=== PATIENT | female | born 1945 | race Caucasian/White ===

== ENCOUNTER 2018-01-20 11:52 | Emergency (ER) | payer MEDICARE ==
[2018-01-20] MEDS ORDERED: Fentanyl 100 MCG/2 ML VIAL ONE (12:29)
[2018-01-20] MEDS ORDERED: ISOVUE-370 76%-LOCM 1 ML ONE (12:33)
[2018-01-20] MEDS ORDERED: Ondansetron HCl/PF 4 MG/2 ML Vial ONE (12:45)
--- NOTE | 2018-01-20 13:01 | RAD ---
PORTABLE CHEST: History: Chest pain. Comparison: 06-06-16 FINDINGS: Heart is mildly prominent with post op sternotomy changes. Lung iverson are clear. No infiltrate or va scular congestion. No evidence of effusion. IMPRESSION: No acute lung process. POS: [facility]
[2018-01-20] MEDS ORDERED: Promethazine HCl 25 MG/ML VIAL ONE (13:12)
[2018-01-20 14:28] LABS: #Eosinphils 0.1 thou/uL (0.0-0.7); #Monocytes 0.8 thou/uL (0.11-0.59); #Neutrophils 8.3 thou/uL (1.40-6.50); %Basophils 0.4 % (0.0-1.0); %Eosinophils 0.9 % (0.0-10.0); %Lymphocytes 17.4 % (21.0-51.0); %Monocytes 7.3 % (0.0-10.0); %Neutrophils 73.9 % (42.0-75.0); Mean Corpuscular HGB CONC 31.9 g/dL (32.0-36.0); Mean Corpuscular Hemoglobin 28.8 pg (27.0-31.0); Mean Corpuscular Volume 90.3 fL (78.0-98.0); Mean Platelet Volume 9.7 fL (7.4-10.4); Platelet Count 174 thou/uL (130-400); RBC Distribution Width 12.9 % (11.5-14.5); White Blood Cell (WBC) Count 11.3 thou/uL (4.8-10.8)
--- NOTE | 2018-01-20 14:33 | ULT ---
VENOUS DUPLEX SONOGRAM BILATERAL LOWER EXTREMITIES: HISTORY: Bilateral leg pain and edema. FINDINGS: Each common femoral vein and greater saphenous junction are evaluated along with each femoral, deep f emoral, popliteal, and posterior tibial vein. There is good color and spectral Doppler flow, anh kaitlyn, and augmentation. IMPRESSION: No sonographic evidence of deep vein thrombosis within either lower extremity. POS: [facility]
[2018-01-20 14:51] LABS: ALT (SGPT) 22 U/L (8-55); AST (SGOT) 23 U/L (5-34); Albumin 4.2 g/dL (3.4-4.8); Alkaline Phosphatase 144 U/L (40-150); Anion Gap 15 mmol/L (10-20); BUN (Urea Nitrogen) 16 mg/dL (9.8-20.1); Bilirubin, Total 0.8 mg/dL (0.2-1.2); CK (CPK) 140 U/L (29-168); Calc. Creatinine Clearance 0 mL/min (70-130); Calcium 10.1 mg/dL (7.8-10.44); Carbon Dioxide 25 mmol/L (23-31); Chloride 103 mmol/L (98-107); Estimated GFR-MDRD 70; Globulin 4.2 g/dL (2.4-3.5); Glucose 167 mg/dL (83-110); Potassium 3.9 mmol/L (3.5-5.1); Protein, Total 8.4 g/dL (6.0-8.3); Sodium 139 mmol/L (136-145)
[2018-01-20 14:55] LABS: CKMB 5.7 ng/mL (0-6.6); Troponin I Less than 0.010 ng/mL (< 0.028)
--- NOTE | 2018-01-20 15:43 | CT ---
CT ARTERIOGRAM CHEST WITH IV CONTRAST AND 3D MIP IMAGING CT ARTERIOGRAM ABDOMEN WITH IV CONTRAST AND 3D MIP IMAGING: History: Chest and abdomen pain. Radiation to back. FINDINGS: Normal branching great vessels of the aortic arch. Mild arterial calcification. Pulmonary arteries ar e well opacified centrally. Duplicated right renal artery. Visceral arteries are patent. Peripherally calcified lesion within the lateral aspect of the liver has the appearance of a benign p rocess and has evolved appropriately since the 2006 exam. Old right rib fractures. Gallbladder is ludy gically absent. Pelvis was not imaged. Degenerative changes lumbar spine. IMPRESSION: 1. No CT evidence of aortic aneurysm or dissection. No acute abnormalities are demonstrated. 2. Atherosclerosis. POS: [facility]
== END 2018-01-20 16:09 | disposition home or self-care (01) ==
LOC: ERS 11:52
DX: R07.9 Chest pain, unspecified (principal); M79.672 Pain in left foot; M79.671 Pain in right foot; K21.9 Gastro-esophageal reflux disease without esophagitis; E78.5 Hyperlipidemia, unspecified; I10 Essential (primary) hypertension; Z79.899 Other long term (current) drug therapy
CPT/HCPCS: 36415; 71045; 71275; 80053; 82553; 83880; 84484; 85025; 85379; 93005; 93970; 96365; 96375; J2405; J2550; J3010

== ENCOUNTER 2020-01-29 05:34 | Observation (INO) | payer MEDICARE ==
[2020-01-29] MEDS ORDERED: Nitroglycerin 2% Ointment 1 INCH/1 GM Packet ONE (05:56)
[2020-01-29 06:26] LABS: #Eosinphils 0.2 thou/uL (0.0-0.7); #Lymphocytes 1.7 thou/uL (1.20-3.40); #Neutrophils 8.7 thou/uL (1.40-6.50); %Basophils 0.3 % (0.0-1.0); %Eosinophils 1.3 % (0.0-10.0); %Lymphocytes 14.4 % (21.0-51.0); %Monocytes 8.2 % (0.0-10.0); %Neutrophils 75.8 % (42.0-75.0); Hemoglobin 14.7 g/dL (12.0-16.0); Mean Corpuscular HGB CONC 32.1 g/dL (32.0-36.0); Mean Corpuscular Hemoglobin 29.2 pg (27.0-31.0); Mean Corpuscular Volume 90.8 fL (78.0-98.0); Mean Platelet Volume 11.2 fL (7.4-10.4); Platelet Count 150 thou/uL (130-400); RBC Distribution Width 12.9 % (11.5-14.5); Red Blood Cell (RBC) Count 5.02 mill/uL (4.20-5.40); White Blood Cell (WBC) Count 11.5 thou/uL (4.8-10.8)
[2020-01-29 06:46] LABS: ALT (SGPT) 21 U/L (8-55); AST (SGOT) 19 U/L (5-34); Albumin 3.7 g/dL (3.4-4.8); Alkaline Phosphatase 126 U/L (40-110); Anion Gap 13 mmol/L (10-20); BUN (Urea Nitrogen) 19 mg/dL (9.8-20.1); Bilirubin, Total 0.6 mg/dL (0.2-1.2); CK (CPK) 73 U/L (29-168); Calc. Creatinine Clearance 0 mL/min (70-130); Calcium 9.6 mg/dL (7.8-10.44); Carbon Dioxide 27 mmol/L (23-31); Chloride 100 mmol/L (98-107); Estimated GFR-MDRD 61; Globulin 3.9 g/dL (2.4-3.5); Glucose 349 mg/dL (83-110); Lipase 14 U/L (8-78); Potassium 3.8 mmol/L (3.5-5.1); Protein, Total 7.6 g/dL (6.0-8.3); Sodium 136 mmol/L (136-145)
--- NOTE | 2020-01-29 08:39 | RAD ---
CHEST 1 VIEW: INDICATION: History of chest pain and shortness of breath. COMPARISON: Prior exam dated 06/16/2019. FINDINGS: Post-CABG change is similar-appearing. Lungs are clear. No pleural effusion or pneumothorax is evid ent. There is stable postsurgical change of bilateral rotator cuff repairs. IMPRESSION: No acute cardiopulmonary abnormality. POS: [facility]
[2020-01-29 09:37] LABS: Troponin I 0.021 ng/mL (< 0.028)
[2020-01-29 10:54] VITALS: BMI 39.7
[2020-01-29] MEDS ORDERED: Dextrose 50% Abboject 50 ML SYRINGE SLOW IVP PRN (11:44)
[2020-01-29] MEDS ORDERED: Dextrose 5% in Water 1,000 ML IV PRN (11:44)
[2020-01-29 13:07] LABS: SARS-CoV-2 NAA Rapid Test Not Detected (NotDetected)
[2020-01-29 13:34] LABS: Hemoglobin A1c 10.5 % (4.0-6.0)
[2020-01-29 13:53] LABS: Troponin I 0.011 ng/mL (< 0.028)
[2020-01-29] MEDS ORDERED: Communication Order-Pharmacy FS SCH (14:00)
[2020-01-29] MEDS ORDERED: Enoxaparin Sodium 100 MG/ML SYRINGE SC SCH (14:15)
--- NOTE | 2020-01-29 15:37 | PDOC.HHP ---
Hospitalist HPI - History of Present Illness chest pain History of Present Illness: This is a 74 year old female with past medical history of CABG, CAD, possible diabetes who presented to the ER with chest pain. The patient states that she started having chest pain at 8:00 pm last night. It was sharp, radiating to her shoulder, neck and was between her shoulder blades. She states she felt very hot during this episode, but had no palpitations, lightheadedness or dizziness. She took a nitroglycerin which helped her pain, but her chest pain did not completely go away so she called a nurse at her doctor's office who stated that she can take additional nitroglycerin if needed. She took two additional nitroglycerin which relieved her chest pain and then she came to the ER. She did not ambulate so is not sure whether she had chest pain on exertion. She denies association with food intake. She had no fevers or chills, no abdominal pain, nausea, vomiting or diarrhea. SHe reports occasional dry cough, occasional sneezing for months, she states "possibly due to the air." ED Course: The patient presented to the ER with a BP of 182/68. She was given metoprolol IV and nitroglycerin with improvement in her BP. Chest X ray was normal. First two troponins were normal. The patient was admitted for further workup. The patient states her blood sugar was >300, and was not aware if she has diabetes or not. Hospitalist ROS - Review of Systems Constitutional: denies: fever, chills Eyes: denies: pain, vision change Respiratory: reports: cough (occasional). denies: dry, shortness of breath, pleuritic pain Cardiovascular: denies: chest pain, palpitations, orthopnea, paroxysmal noc. dyspnea Gastrointestinal: denies: nausea, vomiting, abdominal pain, hematochezia Genitourinary: denies: dysuria, frequency Musculoskeletal: reports: shoulder pain (bilateral shoulder pain radiating to arms). denies: neck pain Skin: denies: rash Neurological: denies: weakness, numbness - Medication Medications: Active Medications Generic Name Dose Route Start Last Admin Trade Name Freq PRN Reason Stop Dose Admin Enoxaparin Sodium 100 mg 01/29/20 14:15 01/29/20 14:52 Lovenox SC 01/29/20 16:15 100 mg NOW [facility] Hospitalist History - Past Surgical History Other Surgical History: Rotator cuff repair Ruptured disc Varicose vein surgery CABG 1998 - Family History Other Family History: Brother has heart disease Father had heart disease - Social History Smoking Status: Never smoker Alcohol: reports: None - Exam General Appearance: NAD, awake alert Eye: PERRL, anicteric sclera ENT: normocephalic atraumatic, no oropharyngeal lesions Neck: no JVD Heart: RRR, no murmur, no gallops, no rubs Respiratory: CTAB, no wheezes, no rales, no ronchi Gastrointestinal: soft, non-tender, non-distended, normal bowel sounds Extremities: no cyanosis, no clubbing, no edema Skin: normal turgor, no lesions, no rashes Neurological: cranial nerve grossly intact, normal sensation to touch, no focal deficits, no new deficit Musculoskeletal: normal tone, normal strength, no muscle wasting Hospitalist Results - Labs Result Diagrams: 01/29/20 06:03 01/29/20 06:03 Lab results: WBC 11.5 thou/uL (4.8-10.8) H 01/29/20 06:03 Hgb 14.7 g/dL (12.0-16.0) 01/29/20 06:03 Hct 45.6 % (36.0-47.0) 01/29/20 06:03 MCV 90.8 fL (78.0-98.0) 01/29/20 06:03 Plt Count 150 thou/uL (130-400) 01/29/20 06:03 Neutrophils % 75.8 % (42.0-75.0) H 01/29/20 06:03 Sodium 136 mmol/L (136-145) 01/29/20 06:03 Potassium 3.8 mmol/L (3.5-5.1) 01/29/20 06:03 Chloride 100 mmol/L (98-107) 01/29/20 06:03 Carbon Dioxide 27 mmol/L (23-31) 01/29/20 06:03 BUN 19 mg/dL (9.8-20.1) 01/29/20 06:03 Creatinine 0.91 mg/dL (0.6-1.1) 01/29/20 06:03 Glucose 349 mg/dL (83-110) H 01/29/20 06:03 Calcium 9.6 mg/dL (7.8-10.44) 01/29/20 06:03 Total Bilirubin 0.6 mg/dL (0.2-1.2) 01/29/20 06:03 AST 19 U/L (5-34) 01/29/20 06:03 ALT 21 U/L (8-55) 01/29/20 06:03 Alkaline Phosphatase 126 U/L (40-110) H 01/29/20 06:03 Creatine Kinase 73 U/L (29-168) 01/29/20 06:03 Troponin I 0.011 ng/mL (< 0.028) 01/29/20 13:05 Serum Total Protein 7.6 g/dL (6.0-8.3) 01/29/20 06:03 Albumin 3.7 g/dL (3.4-4.8) 01/29/20 06:03 Lipase 14 U/L (8-78) 01/29/20 06:03 - EKG Interpretation EKG: First degree AV block Hospitalist H&P A/P - Plan Plan: Chest Xray: no acute abnormality This is a 74 year old female with past medical history of CAD s/p CABG, hypertension who presents with chest pain alleviated with nitro Chest pain - reports pain alleviated with nitro .Takes aspirin but not statin - troponins have been negative - will continue aspirin and start statin. Cardiology was consulted, plan for cath on Friday given patient's possible noncompliance - treated with therapeutic lovenox this am Hyperglycemia - blood sugar 300 on BMP - check hemoglobin A1C Leukocytosis - WBC 11.5, check UA - chest X ray normall Hypertension - started on coreg and continued on home spironolactone DVT prophylaxis: lovenox Code status: full code
[2020-01-29] MEDS: Carvedilol 6.25 MG TAB PO SCH (17:56)
[2020-01-29] MEDS: HumaLOG 300 UNITS/3 ML VIAL SC PRN ×2 (17:57→21:18)
[2020-01-29] MEDS: Atorvastatin Calcium 40 MG TAB PO SCH (21:04)
[2020-01-29 21:48] LABS: Bacteria/HPF 3+ HPF (None Seen); RBC/HPF 0-3 HPF (0-3); Renal Epithelial 0-3 HPF (None Seen)
[2020-01-29 21:54] LABS: Yeast-Budding 1+ HPF (None Seen)
[2020-01-30] MEDS: HumaLOG 300 UNITS/3 ML VIAL SC PRN ×3 (06:31→17:49)
--- NOTE | 2020-01-30 07:33 | CON ---
DATE OF CONSULTATION: 01/29/2020 REASON FOR CONSULTATION: Chest pain, requiring nitroglycerin. HISTORY OF PRESENT ILLNESS: Ms. Kiley Holly is a 74-year-old woman, who had a history of bypass surgery in 1998. She had internal mammary to the LAD and a radial to the diagonal. The patient did well, but has some recurrent chest pain and underwent cardiac catheterization in 2013 in July. She was found to have a patent internal mammary to the LAD, a left dominant circumflex with no stenosis. There was no graft to the diagonal. The right coronary is nondominant, also free of any disease. She has been treated medically since then. The patient recently has been having increasing amounts of chest pain and came in at this time with nitroglycerin being required x3, came to the hospital. PAST HISTORY: 1. Hypercholesterolemia, but she stopped taking the lipid-lowering therapy a couple of years ago she said. She has not had any cholesterol levels drawn. We have asked her to have levels drawn, but this has not been done. She also told me in the past that she has been having more problem with her memory. 2. Positive for elevated blood sugars. She looks like she is diabetic with a blood sugar at this time of 349. 3. History of hypertension. 4. Peripheral edema. MEDICATIONS: The medication that she took at home, she took; 1. Spironolactone 25 mg a day. 2. Torsemide 20 mg a day. 3. Aspirin 325 mg a day. She previously was on amlodipine, lisinopril/hydrochlorothiazide, carvedilol, atorvastatin, but she stopped taking those at sometime, unclear when. REVIEW OF SYSTEMS: CONSTITUTIONAL: Positive for memory loss. VISION: No changes. HEARING: No changes. PULMONARY: No cough or wheezing. GASTROINTESTINAL: No nausea, vomiting, or diarrhea. SKIN: No rashes. NEUROLOGIC: No unilateral weakness or numbness. PSYCHIATRIC: No unusual depression or anxiety. PHYSICAL EXAMINATION: GENERAL: This is a pleasant 74-year-old woman, resting comfortably in no distress. VITAL SIGNS: Blood pressure is 147/68 and pulse 78, regular. LUNGS: Clear. CARDIAC: Normal S1. Normal S2. ABDOMEN: Obese, nontender. EXTREMITIES: No clubbing. No cyanosis. Only mild edema. SKIN: Warm and dry. PSYCHIATRIC: Mood and affect normal. NEUROLOGIC: Grossly normal. PERTINENT LABORATORY DATA: Her blood sugar was 349. Hemoglobin A1c 10.5. Troponin 0.021. IMAGING DATA: EKG showed what looked like old septal infarct. ASSESSMENT: 1. Looks to have unstable angina. 2. Uncontrolled diabetes. 3. Noncompliance with statins. 4. Hypertension, not taking the medicines for that. 5. Peripheral edema. PLAN: I would recommend proceeding to repeat cardiac catheterization. The last catheterization was over 6 years ago. Discussed risk of stroke, heart attack, iodine allergy, loss of blood supply to leg or kidney, stent thrombosis, stent restenosis. She understands and wished to proceed. This will be done on Friday. Job ID: [id number]
[2020-01-30 07:58] LABS: Hemoglobin 14.9 g/dL (12.0-16.0); Mean Corpuscular HGB CONC 31.2 g/dL (32.0-36.0); Mean Corpuscular Hemoglobin 28.3 pg (27.0-31.0); Mean Corpuscular Volume 90.8 fL (78.0-98.0); Mean Platelet Volume 11.3 fL (7.4-10.4); Platelet Count 174 thou/uL (130-400); RBC Distribution Width 12.8 % (11.5-14.5); Red Blood Cell (RBC) Count 5.25 mill/uL (4.20-5.40); White Blood Cell (WBC) Count 11.4 thou/uL (4.8-10.8)
[2020-01-30 08:11] LABS: Chloride 101 mmol/L (98-107); Potassium 4.1 mmol/L (3.5-5.1); Sodium 137 mmol/L (136-145)
[2020-01-30 08:12] LABS: Calcium 9.8 mg/dL (7.8-10.44); Glucose 215 mg/dL (83-110); Triglycerides 135 mg/dL (Less than 150)
[2020-01-30 08:14] LABS: Anion Gap 11 mmol/L (10-20); Carbon Dioxide 29 mmol/L (23-31)
[2020-01-30 08:16] LABS: BUN (Urea Nitrogen) 21 mg/dL (9.8-20.1); Calc. Creatinine Clearance 103 mL/min (70-130); Estimated GFR-MDRD 67
[2020-01-30 08:17] LABS: Cholesterol 190 mg/dl (< 200 Desired)
[2020-01-30 08:18] LABS: Cardiac Risk 5.3 (Less than 4.5); HDL Cholesterol 36 mg/dL (>60 Neg Risk); LDL Cholesterol, Calculated 127 mg/dL
[2020-01-30] MEDS: Aspirin 81 mg Enteric Coated Tablet PO SCH (08:34)
[2020-01-30] MEDS: Carvedilol 6.25 MG TAB PO SCH (08:34)
[2020-01-30] MEDS: Spironolactone 25 MG TAB PO SCH (08:34)
--- NOTE | 2020-01-30 09:05 | PDOC.CPN ---
- Subjective Date: 01/30/20 Time: 08:40 Interval history: Patient seen and examined. She describes "heavy sensation" across her chest, states "comes and goes". She denies any recurrence of discomfort that brought her to the ER. Describes LOMBARDI, but also "haven't done anything to exert myself" . Reviewed home medications. Telemetry reviewed, brief, intermittent episodes 2nd AVB Kim I this am. - Review of Systems General: denies: fever/chills, weight/appetite/sleep changes, night sweats, fatigue Respiratory: reports: cough (describes as dry), shortness of breath, exercise intolerance. denies: congestion Cardiovascular: reports: chest pain, edema. denies: palpitation, paroxysmal nocturnal dyspnea, orthopnea Gastrointestinal: denies: nausea, vomiting, diarrhea, constipation, abd pain, GI bleeding - Objective Allergies/Adverse Reactions: Allergies Allergy/AdvReac Type Severity Reaction Status Date / Time codeine Allergy Verified 01/29/20 10:55 hydrocodone Allergy Verified 01/29/20 10:55 Visit Medications: Current Medications Aspirin (Ecotrin) 81 mg PO DAILY [facility] Last Admin: 01/30/20 08:34 Dose: 81 mg Atorvastatin Calcium (Lipitor) 40 mg PO HS [facility] Last Admin: 01/29/20 21:04 Dose: 40 mg Carvedilol (Coreg) 6.25 mg PO BID-[facility] Last Admin: 01/30/20 08:34 Dose: 6.25 mg Dextrose/Water (Dextrose 50%) 25 gm SLOW IVP PRN PRN PRN Reason: Hypoglycemia Diazepam (Valium) 5 mg PO [facility] Stop: 01/31/20 23:59 Glucagon (Glucagon) 1 mg IM PRN PRN PRN Reason: Hypoglycemia Dextrose/Water (D5w) 1,000 mls @ 0 mls/hr IV .Q0M PRN PRN Reason: Hypoglycemia Sodium Chloride (Normal Saline 0.9%) 1,000 mls @ 100 mls/hr IV .Q10H [facility] Insulin Human Lispro (Humalog) 0 units SC .MILD SLIDING SCALE PRN PRN Reason: Mild Correctional Scale Last Admin: 01/30/20 06:31 Dose: 3 unit Miscellaneous Information (Communication Order-Pharmacy) 0 each FS [facility] Stop: 01/30/20 23:59 Spironolactone (Aldactone) 25 mg PO QAM-[facility] Last Admin: 01/30/20 08:34 Dose: 25 mg Vital Signs & Weight: Vital Signs Temp Pulse Resp BP BP BP Pulse Ox 01/30/20 08:34 131/92 H 01/30/20 07:21 97.7 F 88 14 131/97 H 95 01/30/20 03:55 98.2 F 82 17 119/53 L 94 L 01/29/20 21:10 98.0 F 75 20 140/63 96 Weight 239 lb 1.6 oz - Quality Measures Condition: Coronary Artery Disease CV meds: Beta Evangelista: Yes, ISAIAH/ARB: No, Statin: Yes, ASA: Yes, Plavix/Effient/ Brilinta: No, Anticoagulant: No - Medication Contraindications No Antithrombotic reason: Treatment not indicated No Anticoagulant reason: Treatment not indicated - Physical Exam General: alert & oriented x3, appears well, no apparent distress HEENT: mucus membranes moist Neck: supple neck, no JVD/HJR Cardiac: regular rate and rhythm, S1/S2 Lungs: clear to auscultation, normal breath sounds, no wheeze, rales, rhonchi Neuro: grossly intact Abdomen: active bowel sounds, other (obese) Extremities: no cyanosis, no clubbing, 1+ LE edema (left > right) Skin: clear - Labs Result Diagrams: 01/30/20 07:49 01/30/20 07:49 Troponin/CKMB Troponin I 0.011 ng/mL (< 0.028) 01/29/20 13:05 - Telemetry Sinus rhythms and dysrhythmias: sinus rhythm (Brief 2nd degree AVB Mobitz I, HR 49-60) - Assessment/Plan Assessment/Plan: Assessment: 1. CAD 2. HTN 3. DM Type II-uncontrolled 4. Pure hypercholesterolemia 5. Obesity 6. Brief 2nd degree ABG Type I-asymptomatic, HR 49 Plan: Plan for [facility] tomorrow, all questions asked were answered. Decrease carvedilol, add ACEi for BP control. Reinforced importance of medication compliance. Reviewed POC with Dr. To.
[2020-01-30] MEDS ORDERED: Lisinopril 5 MG TAB PO SCH (10:15)
[2020-01-30] MEDS: Carvedilol 3.125 MG TAB PO SCH (16:14)
[2020-01-30] MEDS: Atorvastatin Calcium 40 MG TAB PO SCH (20:45)
[2020-01-31] MEDS: Aspirin 81 mg Enteric Coated Tablet PO SCH (04:13)
[2020-01-31] MEDS: Spironolactone 25 MG TAB PO SCH (05:44)
[2020-01-31] MEDS: Carvedilol 3.125 MG TAB PO SCH (05:48)
[2020-01-31] MEDS ORDERED: Diazepam 5 MG TAB PO SCH (06:00)
[2020-01-31] MEDS ORDERED: Sodium Chloride 0.9% 1,000 ML IV SCH (06:00)
[2020-01-31] MEDS ORDERED: Lisinopril 5 MG TAB PO SCH (09:00)
[2020-01-31] MEDS ORDERED: Sodium Chloride 0.9% 200 ML IV PRN (09:44)
[2020-01-31] MEDS ORDERED: Nitroglycerin 0.4 MG TAB (25 Tab Bottle) SL PRN (09:44)
[2020-01-31] MEDS: HumaLOG 300 UNITS/3 ML VIAL SC PRN (11:37)
[2020-01-31] MEDS ORDERED: Iopamidol 370 76% 100 ML VIAL ONE (11:45)
[2020-01-31 13:02] VITALS: BP 151/68; TEMP 98.8
--- NOTE | 2020-01-31 17:49 | PDOC.HOSPP ---
- Subjective Encounter Date: 01/30/20 Encounter Time: 11:15 Subjective: pt up in bed no complains - Objective Vital Signs & Weight: Vital Signs (12 hours) Temp Pulse Resp BP BP BP Pulse Ox 01/31/20 12:00 98.8 F 57 L 14 151/68 H 96 01/31/20 09:50 97.6 F 64 14 135/60 135/60 95 01/31/20 07:15 98 F 72 14 119/56 L 95 Weight Weight 241 lb 1.6 oz I&O: 01/30/20 01/31/20 02/01/20 06:59 06:59 06:59 Intake Total 898 1180 240 Output Total 600 Balance 898 580 240 Result Diagrams: 01/30/20 07:49 01/30/20 07:49 Additional Labs: Accuchecks 01/31/20 01/31/20 01/30/20 11:11 05:44 20:41 POC Glucose 191 H 226 H 223 H Hospitalist ROS - Review of Systems Cardiovascular: denies: chest pain, palpitations, orthopnea, paroxysmal noc. dyspnea, edema, light headedness, other Gastrointestinal: denies: nausea, vomiting, abdominal pain, diarrhea, constipation, melena, hematochezia, other Genitourinary: denies: dysuria, frequency, incontinence, hematuria, retention, other - Exam Heart: negative: RRR, no murmur, no gallops, no rubs, normal peripheral pulses, irregular, diminshed peripheral pulses, murmur present, II/IV, III/IV Respiratory: negative: CTAB, no wheezes, no rales, no ronchi, normal chest expansion, no tachypnea, normal percussion, rales, rhonchi, tachypneic, wheezes Gastrointestinal: negative: soft, non-tender, non-distended, normal bowel sounds , no palpable masses, no hepatomegaly, no splenomegaly, no bruit, no guarding, no rigidity, tender to palpation, distended, diminished bowl sounds, voluntary guarding Hosp A/P (1) Chest pain Code(s): R07.9 - CHEST PAIN, UNSPECIFIED Status: Acute (2) CAD (coronary artery disease) Code(s): I25.10 - ATHSCL HEART DISEASE OF [place] CORONARY ARTERY W/O ANG PCTRS Status: Acute (3) Diabetes Code(s): E11.9 - TYPE 2 DIABETES MELLITUS WITHOUT COMPLICATIONS Status: Acute - Plan will continue current meds. will check hbgalc. pt will need meds for diabetes. cath in am. she is on dvt ppx.
--- NOTE | 2020-01-31 20:23 | DIS ---
DATE OF ADMISSION: 01/29/2020 DATE OF DISCHARGE: 01/31/2020 DISCHARGE DIAGNOSES: As of the followin. Chest pain. 2. Coronary artery disease. 3. Hyperglycemia. 4. New diagnosis of diabetes. 5. Mild leukocytosis. HOSPITAL COURSE: The patient is a very pleasant 74-year-old female who initially presented to the hospital with complaints of chest pain. The patient was seen by Cardiology, underwent a cardiac catheterization that indicated medical management. The cath indicated EF of 60%, LAD 100% with patent MARIE graft with good flow. Circumflex, no obstruction, no obstructive CAD. RCA, nondominant, nonobstructive CAD. Ascending aorta was calcified. Medical treatment was recommended. The patient also was found to have newly diagnosed diabetes. Hemoglobin A1c was 10. She was started on medications, two; one was metformin which she was asked to start on the and also glipizide. HOME MEDICATIONS: The patient's home medications will be: 1. Spironolactone 25 mg daily. 2. Aspirin 81 mg daily. 3. Metformin 500 mg twice a day. 4. Glipizide 2.5 twice a day. 5. Lisinopril 5 mg daily. 6. Atorvastatin 40 mg at bedtime. PHYSICAL EXAMINATION: VITAL SIGNS: Temperature 97.6, pulse 64, blood pressure 135/60, respirations 14, and O2 saturation is 95% on room air. GENERAL: She is awake, alert, and oriented x3. Does not appear in distress. CV: S1, S2 present. No murmurs, rubs, or gallops. ABDOMEN: Soft and nontender. Bowel sounds are present x2. EXTREMITIES: Her right calf area appears stable. Also, she has good pedal pulses. The patient was then discharged to home. She will follow up with her primary. I have provided her with Cardiology's number and also new primary since she has been looking for one. Job ID: [id number]
== END 2020-01-31 15:30 | disposition home or self-care (01) ==
LOC: ERS 05:34 → 2NO 09:55
PROVIDERS: ADMIT Internal Medicine; ATTEND Internal Medicine
PROC: 4A023N7 Measurement of Cardiac Sampling and Pressure, Left Heart, Percutaneous Approach (ICD-10-PCS; principal; 2020-01-31)
PROC: B2111ZZ Fluoroscopy of Multiple Coronary Arteries using Low Osmolar Contrast (ICD-10-PCS; 2020-01-31)
PROC: B2181ZZ Fluoroscopy of Left Internal Mammary Bypass Graft using Low Osmolar Contrast (ICD-10-PCS; 2020-01-31)
PROC: B2121ZZ Fluoroscopy of Single Coronary Artery Bypass Graft using Low Osmolar Contrast (ICD-10-PCS; 2020-01-31)
DX: R07.9 Chest pain, unspecified (principal); I25.10 Atherosclerotic heart disease of native coronary artery without angina pectoris; I25.82 Chronic total occlusion of coronary artery; I70.0 Atherosclerosis of aorta; E11.65 Type 2 diabetes mellitus with hyperglycemia; D72.829 Elevated white blood cell count, unspecified; E78.00 Pure hypercholesterolemia, unspecified; I10 Essential (primary) hypertension; K21.9 Gastro-esophageal reflux disease without esophagitis; E78.5 Hyperlipidemia, unspecified; R60.0 Localized edema; I44.1 Atrioventricular block, second degree; E66.9 Obesity, unspecified; Z68.41 Body mass index [BMI] 40.0-44.9, adult; Z79.82 Long term (current) use of aspirin; Z79.899 Other long term (current) drug therapy; Z95.1 Presence of aortocoronary bypass graft; Z91.14 Patient's other noncompliance with medication regimen; Z20.828 Contact with and (suspected) exposure to other viral communicable diseases
CPT/HCPCS: 36600; 71045; 80048; 80053; 80061; 81015; 82550; 82962 ×3; 83036 ×2; 83690; 84484 ×2; 85025; 85027; 93005; 93455; 99285; U0002; 36415; 36416; 96372; G0378; J1644; J1650; Q9967

== ENCOUNTER 2021-12-25 21:32 | Inpatient (IN) | payer MEDICARE ==
[~2021-12-25 21:32] MED LIST: ISOVUE-370 76%-LOCM 1 ML ONE
[2021-12-25 22:57] LABS: #Basophils 0.1 thou/uL (0.0-0.2); #Eosinphils 0.2 thou/uL (0.0-0.7); #Lymphocytes 1.9 thou/uL (1.20-3.40); %Basophils 0.8 % (0.0-1.0); %Eosinophils 1.5 % (0.0-10.0); %Lymphocytes 19.2 % (21.0-51.0); %Monocytes 9.7 % (0.0-10.0); %Neutrophils 68.8 % (42.0-75.0); Hemoglobin 14.2 g/dL (12.0-16.0); Mean Corpuscular HGB CONC 31.7 g/dL (32.0-36.0); Mean Corpuscular Hemoglobin 28.9 pg (27.0-31.0); Mean Corpuscular Volume 90.9 fL (78.0-98.0); Mean Platelet Volume 10.8 fL (7.4-10.4); Platelet Count 146 thou/uL (130-400); RBC Distribution Width 14.4 % (11.5-14.5); Red Blood Cell (RBC) Count 4.93 mill/uL (4.20-5.40); White Blood Cell (WBC) Count 10.1 thou/uL (4.8-10.8)
[2021-12-25 23:08] LABS: INR-International Normal Ratio 1.1; PTT 32.5 sec (22.9-36.1); Prothrombin Time 14.5 sec (12.0-14.7)
[2021-12-25 23:18] LABS: ALT (SGPT) 18 U/L (8-55); AST (SGOT) 20 U/L (5-34); Albumin 3.6 g/dL (3.4-4.8); Alkaline Phosphatase 138 U/L (40-110); Anion Gap 15 mmol/L (10-20); BUN (Urea Nitrogen) 22 mg/dL (9.8-20.1); Bilirubin, Total 0.7 mg/dL (0.2-1.2); Calc. Creatinine Clearance 0 mL/min (70-130); Carbon Dioxide 25 mmol/L (23-31); Chloride 106 mmol/L (98-107); Globulin 3.1 g/dL (2.4-3.5); Glucose 156 mg/dL (83-110); Potassium 4.3 mmol/L (3.5-5.1); Protein, Total 6.7 g/dL (5.8-8.1); Sodium 142 mmol/L (136-145)
[2021-12-25] MEDS ORDERED: Ketorolac Tromethamine 30 MG/ML VIAL ONE (23:27)
[2021-12-25] MEDS ORDERED: Acetaminophen 500 MG TAB ONE ×2 (23:29→23:30)
[2021-12-26 01:50] LABS: Magnesium 1.8 mg/dL (1.6-2.6)
[2021-12-26] MEDS ORDERED: Fentanyl 100 MCG/2 ML VIAL ONE (03:07)
[2021-12-26] MEDS ORDERED: Ondansetron PF 4 MG/2 ML Vial ONE (03:31)
[2021-12-26] MEDS ORDERED: Acetaminophen 325 MG TAB PO PRN (05:15)
[2021-12-26] MEDS ORDERED: Ondansetron PF 4 MG/2 ML Vial IVP PRN (05:15)
[2021-12-26] MEDS ORDERED: Ondansetron ODT 4 MG TAB SL PRN (05:15)
[2021-12-26 05:45] VITALS: BMI 38.6
[2021-12-26] MEDS ORDERED: Bisacodyl 5 MG TAB PO PRN (07:23)
[2021-12-26] MEDS ORDERED: Bisacodyl 10 MG SUPP PR PRN (07:23)
[2021-12-26] MEDS ORDERED: Senokot S 8.6-50 MG TAB PO PRN (07:23)
[2021-12-26] MEDS ORDERED: Magnesium 2 GM/50 ML(in water) 2 GM in Premix Bag 1 BAG IVPB SCH (07:30)
[2021-12-26] MEDS ORDERED: Dextrose 5% in Water 1,000 ML IV PRN (07:41)
[2021-12-26] MEDS ORDERED: HumaLOG 300 UNITS/3 ML VIAL SC PRN (07:41)
[2021-12-26] MEDS ORDERED: Dextrose 50% Abboject 50 ML SYRINGE SLOW IVP PRN (07:41)
[2021-12-26 07:51] LABS: #Eosinphils 0.1 thou/uL (0.0-0.7); #Lymphocytes 1.2 thou/uL (1.20-3.40); #Monocytes 0.5 thou/uL (0.11-0.59); #Neutrophils 6.7 thou/uL (1.40-6.50); %Basophils 0.5 % (0.0-1.0); %Eosinophils 0.7 % (0.0-10.0); %Lymphocytes 14.6 % (21.0-51.0); %Monocytes 6.1 % (0.0-10.0); %Neutrophils 78.2 % (42.0-75.0); Hemoglobin 13.9 g/dL (12.0-16.0); Mean Corpuscular HGB CONC 31.7 g/dL (32.0-36.0); Mean Corpuscular Hemoglobin 29.1 pg (27.0-31.0); Mean Corpuscular Volume 91.7 fL (78.0-98.0); Mean Platelet Volume 10.8 fL (7.4-10.4); Platelet Count 148 thou/uL (130-400); RBC Distribution Width 14.5 % (11.5-14.5); White Blood Cell (WBC) Count 8.5 thou/uL (4.8-10.8)
[2021-12-26 08:02] LABS: Hemoglobin A1c 7.5 % (4.0-6.0)
[2021-12-26 08:15] LABS: ALT (SGPT) 16 U/L (8-55); AST (SGOT) 19 U/L (5-34); Albumin 3.5 g/dL (3.4-4.8); Alkaline Phosphatase 130 U/L (40-110); Anion Gap 13 mmol/L (10-20); BUN (Urea Nitrogen) 22 mg/dL (9.8-20.1); Bilirubin, Total 0.7 mg/dL (0.2-1.2); Calc. Creatinine Clearance 102 mL/min (70-130); Calcium 9.1 mg/dL (7.8-10.44); Carbon Dioxide 27 mmol/L (23-31); Cardiac Risk 4.3 (Less than 4.5); Chloride 105 mmol/L (98-107); Cholesterol 153 mg/dl (< 200 Desired); Globulin 3.4 g/dL (2.4-3.5); Glucose 201 mg/dL (83-110); HDL Cholesterol 36 mg/dL (>60 Neg Risk); LDL Cholesterol, Calculated 104 mg/dL; Potassium 4.4 mmol/L (3.5-5.1); Protein, Total 6.9 g/dL (5.8-8.1); Sodium 141 mmol/L (136-145); Triglycerides 65 mg/dL (Less than 150)
[2021-12-26 08:20] LABS: Troponin I 0.016 ng/mL (< 0.028)
[2021-12-26] MEDS ORDERED: Lidocaine 5% Patch TD SCH (09:00)
[2021-12-26] MEDS ORDERED: Furosemide 20 MG/2 ML VIAL SLOW IVP SCH (10:15)
[2021-12-26] MEDS: hydrALAZINE 20 MG/ML VIAL SLOW IVP PRN (10:54)
[2021-12-26] MEDS: Lidocaine 5% Patch TD SCH (10:54)
[2021-12-26] MEDS: Transdermal Patch Removal TOP SCH (21:15)
[2021-12-26] MEDS: Atorvastatin Calcium 40 MG TAB PO SCH (21:15)
[2021-12-27] MEDS: Acetaminophen 325 MG TAB PO PRN (03:01)
[2021-12-27 04:44] LABS: #Eosinphils 0.1 thou/uL (0.0-0.7); #Lymphocytes 1.1 thou/uL (1.20-3.40); #Monocytes 0.8 thou/uL (0.11-0.59); #Neutrophils 6.8 thou/uL (1.40-6.50); %Basophils 0.5 % (0.0-1.0); %Lymphocytes 12.3 % (21.0-51.0); %Monocytes 8.5 % (0.0-10.0); %Neutrophils 77.7 % (42.0-75.0); Hemoglobin 12.9 g/dL (12.0-16.0); Mean Corpuscular Hemoglobin 28.8 pg (27.0-31.0); Mean Corpuscular Volume 92.9 fL (78.0-98.0); Platelet Count 142 thou/uL (130-400); RBC Distribution Width 14.2 % (11.5-14.5); Red Blood Cell (RBC) Count 4.48 mill/uL (4.20-5.40); White Blood Cell (WBC) Count 8.8 thou/uL (4.8-10.8)
[2021-12-27 05:04] LABS: ALT (SGPT) 14 U/L (8-55); AST (SGOT) 19 U/L (5-34); Albumin 3.2 g/dL (3.4-4.8); Alkaline Phosphatase 113 U/L (40-110); Anion Gap 11 mmol/L (10-20); BUN (Urea Nitrogen) 22 mg/dL (9.8-20.1); Bilirubin, Direct 0.3 mg/dL (0.1-0.3); Bilirubin, Total 0.7 mg/dL (0.2-1.2); Calc. Creatinine Clearance 92 mL/min (70-130); Calcium 8.9 mg/dL (7.8-10.44); Carbon Dioxide 30 mmol/L (23-31); Chloride 103 mmol/L (98-107); Glucose 175 mg/dL (83-110); Magnesium 2.1 mg/dL (1.6-2.6); Potassium 4.3 mmol/L (3.5-5.1); Protein, Total 6.4 g/dL (5.8-8.1); Sodium 140 mmol/L (136-145)
[2021-12-27] MEDS: HumaLOG 300 UNITS/3 ML VIAL SC PRN ×2 (05:53→15:03)
[2021-12-27] MEDS ORDERED: Pioglitazone HCl 15 MG TAB PO SCH (09:00)
[2021-12-27] MEDS: Spironolactone 25 MG TAB PO SCH (09:39)
[2021-12-27] MEDS: Aspirin 81 mg Enteric Coated Tablet PO SCH (09:39)
[2021-12-27] MEDS: Lidocaine 5% Patch TD SCH (09:39)
[2021-12-27] MEDS: Furosemide 40 MG TAB PO SCH (09:39)
[2021-12-27 11:29] LABS: Actual Bicarbonate (HCO3a) 28.7 mEq/L (22-28); Base Excess (BEa) 1.4 mEq/L (-2.0 to +3.0); CO2 Tension 56.1 mmHg (35.0-45.0); Calcium, Ionized (arterial) 1.25 mmol/L (1.12-1.30); Carboxyhemoglobin (COHb) 1.4 gm% (0.0-3.0); Hemoglobin (Hb) 15.3 g/dL (12.0-16.0); O2 Tension (PaO2), arterial 80.2 mmHg (> 70.0); Potassium - ABG Lab 4.07 mmol/L (3.70-5.30); pH, Arterial 7.33 (7.35-7.45)
[2021-12-27 11:30] LABS: ALV-art Gradient 49.315 mmHg (0-20); Puncture Site RRA
[2021-12-27] MEDS: Transdermal Patch Removal TOP SCH (20:26)
[2021-12-27] MEDS: Atorvastatin Calcium 40 MG TAB PO SCH (20:26)
[2021-12-28 04:35] LABS: Actual Bicarbonate (HCO3v) 29 mEq/L (22-28); Base Excess 3.9 mEq/L (-2.0 to +3.0); Calcium, Ionized (venous) 1.12 mmol/L (1.16-1.32); Chloride (VBG) 103 mmol/L (98-106); Hemoglobin (Hb) 13.7 g/dL (11.7-16.1); Potassium (VBG) 4.09 mmol/L (3.70-5.30); Sodium 138.2 mmol/L (133-146); pH (venous) 7.42 (7.32-7.43)
[2021-12-28 04:47] LABS: #Eosinphils 0.1 thou/uL (0.0-0.7); #Lymphocytes 1.4 thou/uL (1.20-3.40); #Monocytes 0.9 thou/uL (0.11-0.59); #Neutrophils 5.9 thou/uL (1.40-6.50); %Basophils 0.4 % (0.0-1.0); %Eosinophils 1.3 % (0.0-10.0); %Monocytes 10.4 % (0.0-10.0); %Neutrophils 70.8 % (42.0-75.0); Mean Corpuscular HGB CONC 31.5 g/dL (32.0-36.0); Mean Corpuscular Hemoglobin 29.3 pg (27.0-31.0); Mean Platelet Volume 11.3 fL (7.4-10.4); Platelet Count 124 thou/uL (130-400); RBC Distribution Width 14.2 % (11.5-14.5); Red Blood Cell (RBC) Count 4.44 mill/uL (4.20-5.40); White Blood Cell (WBC) Count 8.4 thou/uL (4.8-10.8)
[2021-12-28] MEDS: Acetaminophen 325 MG TAB PO PRN ×3 (04:49→20:27)
[2021-12-28 05:07] LABS: Anion Gap 13 mmol/L (10-20); BUN (Urea Nitrogen) 21 mg/dL (9.8-20.1); Calc. Creatinine Clearance 109 mL/min (70-130); Calcium 8.8 mg/dL (7.8-10.44); Carbon Dioxide 27 mmol/L (23-31); Chloride 102 mmol/L (98-107); Glucose 159 mg/dL (83-110); Magnesium 1.9 mg/dL (1.6-2.6); Potassium 4.1 mmol/L (3.5-5.1); Sodium 138 mmol/L (136-145)
[2021-12-28] MEDS: HumaLOG 300 UNITS/3 ML VIAL SC PRN ×2 (06:19→18:28)
[2021-12-28] MEDS: Aspirin 81 mg Enteric Coated Tablet PO SCH (08:43)
[2021-12-28] MEDS: Spironolactone 25 MG TAB PO SCH (08:43)
[2021-12-28] MEDS: Furosemide 40 MG TAB PO SCH (08:44)
[2021-12-28] MEDS: Lidocaine 5% Patch TD SCH (08:44)
[2021-12-28] MEDS: Empagliflozin 10 MG TAB PO SCH (08:44)
[2021-12-28] MEDS: hydrALAZINE 20 MG/ML VIAL SLOW IVP PRN (09:44)
[2021-12-28] MEDS: Ondansetron PF 4 MG/2 ML Vial IVP PRN (13:08)
[2021-12-28] MEDS: Atorvastatin Calcium 40 MG TAB PO SCH (20:27)
[2021-12-28] MEDS: Transdermal Patch Removal TOP SCH (22:04)
[2021-12-29 05:59] LABS: #Eosinphils 0.1 thou/uL (0.0-0.7); #Lymphocytes 1.7 thou/uL (1.20-3.40); #Monocytes 0.8 thou/uL (0.11-0.59); #Neutrophils 4.9 thou/uL (1.40-6.50); %Basophils 0.6 % (0.0-1.0); %Eosinophils 1.4 % (0.0-10.0); %Lymphocytes 22.7 % (21.0-51.0); %Monocytes 10.6 % (0.0-10.0); %Neutrophils 64.6 % (42.0-75.0); Hemoglobin 13.5 g/dL (12.0-16.0); Mean Corpuscular HGB CONC 30.6 g/dL (32.0-36.0); Mean Corpuscular Hemoglobin 28.9 pg (27.0-31.0); Mean Corpuscular Volume 94.6 fL (78.0-98.0); Mean Platelet Volume 11.5 fL (7.4-10.4); Platelet Count 143 thou/uL (130-400); RBC Distribution Width 14.5 % (11.5-14.5); Red Blood Cell (RBC) Count 4.69 mill/uL (4.20-5.40); White Blood Cell (WBC) Count 7.6 thou/uL (4.8-10.8)
[2021-12-29 06:26] LABS: Anion Gap 15 mmol/L (10-20); BUN (Urea Nitrogen) 24 mg/dL (9.8-20.1); Calc. Creatinine Clearance 97 mL/min (70-130); Calcium 9.4 mg/dL (7.8-10.44); Carbon Dioxide 27 mmol/L (23-31); Chloride 103 mmol/L (98-107); Glucose 150 mg/dL (83-110); Potassium 4.2 mmol/L (3.5-5.1); Sodium 141 mmol/L (136-145)
[2021-12-29] MEDS: Empagliflozin 10 MG TAB PO SCH (08:53)
[2021-12-29] MEDS: Aspirin 81 mg Enteric Coated Tablet PO SCH (08:53)
[2021-12-29] MEDS: Lidocaine 5% Patch TD SCH (08:53)
[2021-12-29] MEDS: Acetaminophen 325 MG TAB PO PRN (08:53)
[2021-12-29] MEDS: Furosemide 40 MG TAB PO SCH (08:54)
[2021-12-29] MEDS: Spironolactone 25 MG TAB PO SCH (08:54)
[2021-12-29] MEDS: HumaLOG 300 UNITS/3 ML VIAL SC PRN ×2 (11:59→17:16)
[2021-12-29] MEDS: Atorvastatin Calcium 40 MG TAB PO SCH (20:58)
[2021-12-29] MEDS: Transdermal Patch Removal TOP SCH (21:04)
[2021-12-29] MEDS: Ondansetron PF 4 MG/2 ML Vial IVP PRN (23:17)
[2021-12-30 05:35] LABS: #Eosinphils 0.1 thou/uL (0.0-0.7); #Lymphocytes 1.6 thou/uL (1.20-3.40); #Monocytes 0.7 thou/uL (0.11-0.59); #Neutrophils 4.9 thou/uL (1.40-6.50); %Basophils 0.5 % (0.0-1.0); %Eosinophils 1.6 % (0.0-10.0); %Lymphocytes 22.1 % (21.0-51.0); %Monocytes 9.8 % (0.0-10.0); %Neutrophils 66.1 % (42.0-75.0); Hemoglobin 13.4 g/dL (12.0-16.0); Mean Corpuscular HGB CONC 30.3 g/dL (32.0-36.0); Mean Corpuscular Hemoglobin 28.4 pg (27.0-31.0); Mean Corpuscular Volume 93.8 fL (78.0-98.0); Mean Platelet Volume 11.3 fL (7.4-10.4); Platelet Count 145 thou/uL (130-400); RBC Distribution Width 14.2 % (11.5-14.5); Red Blood Cell (RBC) Count 4.73 mill/uL (4.20-5.40); White Blood Cell (WBC) Count 7.3 thou/uL (4.8-10.8)
[2021-12-30 05:53] LABS: Anion Gap 14 mmol/L (10-20); BUN (Urea Nitrogen) 21 mg/dL (9.8-20.1); Calc. Creatinine Clearance 102 mL/min (70-130); Calcium 9.2 mg/dL (7.8-10.44); Carbon Dioxide 29 mmol/L (23-31); Chloride 102 mmol/L (98-107); Glucose 167 mg/dL (83-110); Potassium 4.4 mmol/L (3.5-5.1); Sodium 141 mmol/L (136-145)
[2021-12-30] MEDS: Empagliflozin 10 MG TAB PO SCH (08:22)
[2021-12-30] MEDS: Lidocaine 5% Patch TD SCH (08:22)
[2021-12-30] MEDS: Spironolactone 25 MG TAB PO SCH (08:22)
[2021-12-30] MEDS: Furosemide 40 MG TAB PO SCH (08:22)
[2021-12-30] MEDS: Ondansetron PF 4 MG/2 ML Vial IVP PRN (08:22)
[2021-12-30] MEDS: Aspirin 81 mg Enteric Coated Tablet PO SCH (08:22)
[2021-12-30] MEDS: HumaLOG 300 UNITS/3 ML VIAL SC PRN (10:55)
[2021-12-30] MEDS: Atorvastatin Calcium 40 MG TAB PO SCH (20:25)
[2021-12-30] MEDS: Transdermal Patch Removal TOP SCH (20:26)
[2021-12-30] MEDS: Acetaminophen 325 MG TAB PO PRN (23:28)
[2021-12-31] MEDS: HumaLOG 300 UNITS/3 ML VIAL SC PRN ×3 (05:07→17:59)
[2021-12-31] MEDS: Spironolactone 25 MG TAB PO SCH (07:58)
[2021-12-31] MEDS: Lidocaine 5% Patch TD SCH (07:58)
[2021-12-31] MEDS: Furosemide 40 MG TAB PO SCH (07:58)
[2021-12-31] MEDS: Empagliflozin 10 MG TAB PO SCH (07:58)
[2021-12-31] MEDS: Aspirin 81 mg Enteric Coated Tablet PO SCH (07:58)
[2021-12-31] MEDS: Acetaminophen 325 MG TAB PO PRN (20:43)
[2021-12-31] MEDS: Atorvastatin Calcium 40 MG TAB PO SCH (20:44)
[2021-12-31] MEDS: Transdermal Patch Removal TOP SCH (21:05)
[2022-01-01] MEDS: Aspirin 81 mg Enteric Coated Tablet PO SCH ×2 (08:31→09:02)
[2022-01-01] MEDS: Lidocaine 5% Patch TD SCH ×2 (08:32→09:03)
[2022-01-01] MEDS: Spironolactone 25 MG TAB PO SCH (09:04)
[2022-01-01] MEDS: Empagliflozin 10 MG TAB PO SCH (09:04)
[2022-01-01] MEDS: Furosemide 40 MG TAB PO SCH (09:04)
[2022-01-01] MEDS: Acetaminophen 325 MG TAB PO PRN (09:08)
[2022-01-01] MEDS: HumaLOG 300 UNITS/3 ML VIAL SC PRN (11:40)
[2022-01-01] MEDS: hydrALAZINE 20 MG/ML VIAL SLOW IVP PRN (18:10)
[2022-01-01] MEDS: Atorvastatin Calcium 40 MG TAB PO SCH (21:00)
[2022-01-01] MEDS: Transdermal Patch Removal TOP SCH (21:00)
[2022-01-01] MEDS ORDERED: Metoclopramide HCl 10 MG/2 ML VIAL IVP SCH (22:30)
[2022-01-02] MEDS: Lisinopril 20 MG TAB PO SCH (10:15)
[2022-01-02] MEDS: Empagliflozin 10 MG TAB PO SCH (10:15)
[2022-01-02] MEDS: Spironolactone 25 MG TAB PO SCH (10:15)
[2022-01-02] MEDS: Lidocaine 5% Patch TD SCH ×2 (10:15→10:21)
[2022-01-02] MEDS: Furosemide 40 MG TAB PO SCH (10:16)
[2022-01-02] MEDS: Aspirin 81 mg Enteric Coated Tablet PO SCH (10:18)
[2022-01-02] MEDS: Ondansetron PF 4 MG/2 ML Vial IVP PRN (18:31)
[2022-01-02] MEDS: Atorvastatin Calcium 40 MG TAB PO SCH (20:17)
[2022-01-02] MEDS: Transdermal Patch Removal TOP SCH (20:20)
[2022-01-02] MEDS: Acetaminophen 325 MG TAB PO PRN (22:26)
[2022-01-03] MEDS ORDERED: Gentamicin 80 MG/100 ML BAG ONE (06:14)
[2022-01-03] MEDS ORDERED: Lidocaine 1% (PF) 30 ML VIAL ONE ×2 (06:14→08:16)
[2022-01-03] MEDS ORDERED: CEFAZOLIN 1 GM VIAL ONE (06:14)
[2022-01-03] MEDS ORDERED: Midazolam HCl 2 mg/2 ml Vial ONE (06:32)
[2022-01-03] MEDS ORDERED: Fentanyl 100 MCG/2 ML VIAL ONE (06:32)
[2022-01-03] MEDS ORDERED: Ondansetron PF 4 MG/2 ML Vial ONE (09:51)
[2022-01-03] MEDS: Furosemide 40 MG TAB PO SCH (10:24)
[2022-01-03] MEDS: Empagliflozin 10 MG TAB PO SCH (10:24)
[2022-01-03] MEDS: Lisinopril 20 MG TAB PO SCH (10:24)
[2022-01-03] MEDS: Aspirin 81 mg Enteric Coated Tablet PO SCH (10:25)
[2022-01-03] MEDS: Lidocaine 5% Patch TD SCH (10:25)
[2022-01-03] MEDS: Spironolactone 25 MG TAB PO SCH (10:25)
[2022-01-03] MEDS ORDERED: Iopamidol 370 76% 50 ML VIAL FS ONE (11:04)
[2022-01-03 16:05] VITALS: BP 149/68; TEMP 97.5
== END 2022-01-03 18:02 | disposition home health service (06) | DRG 242 ==
LOC: ERS 21:32 → NEURO 12-26 03:29 → OBSVTOIN 12-27 15:59
PROVIDERS: ADMIT Internal Medicine; ATTEND Internal Medicine
PROC: 0JH604Z Insertion of Pacemaker, Single Chamber into Chest Subcutaneous Tissue and Fascia, Open Approach (ICD-10-PCS; principal; 2022-01-03)
PROC: 02H60JZ Insertion of Pacemaker Lead into Right Atrium, Open Approach (ICD-10-PCS; 2022-01-03)
PROC: 02HL0JZ Insertion of Pacemaker Lead into Left Ventricle, Open Approach (ICD-10-PCS; 2022-01-03)
DX: I44.1 Atrioventricular block, second degree (principal); J96.01 Acute respiratory failure with hypoxia; I50.33 Acute on chronic diastolic (congestive) heart failure; I16.1 Hypertensive emergency; R00.1 Bradycardia, unspecified; Z20.822 Contact with and (suspected) exposure to COVID-19; R29.6 Repeated falls; I25.10 Atherosclerotic heart disease of native coronary artery without angina pectoris; K21.9 Gastro-esophageal reflux disease without esophagitis; E78.5 Hyperlipidemia, unspecified; K57.30 Diverticulosis of large intestine without perforation or abscess without bleeding; G47.33 Obstructive sleep apnea (adult) (pediatric); E66.9 Obesity, unspecified; E11.65 Type 2 diabetes mellitus with hyperglycemia; I77.810 Thoracic aortic ectasia; G93.89 Other specified disorders of brain; I11.0 Hypertensive heart disease with heart failure; Z95.1 Presence of aortocoronary bypass graft; Z68.37 Body mass index [BMI] 37.0-37.9, adult; Z90.49 Acquired absence of other specified parts of digestive tract; Z90.710 Acquired absence of both cervix and uterus; Z79.82 Long term (current) use of aspirin; Z79.84 Long term (current) use of oral hypoglycemic drugs; Z79.899 Other long term (current) drug therapy; Z88.5 Allergy status to narcotic agent
CPT/HCPCS: 33208; 36415; 36416; 36600; 70450; 71045; 71260; 72125; 74177; 80048; 80053; 80061; 80076; 82607; 82746; 82805; 83036; 83735; 83880; 84443; 84484; 85025; 85610; 85730; 86850; 86900; 86901; 93005; 93010; 93306; 93600; 93610; 93880; 95816; 95819; 95957; 96374; 96375; 99152; 99153; C1730; C1785; C1898; G0378; J0360; J0690; J1580; J1815; J1885; J1940; J2001; J2250; J2405; J2765; J3010; J3475; Q9966; Q9967; U0003; U0005

== ENCOUNTER 2022-01-08 01:26 | Emergency (ER) | payer MEDICARE ==
[2022-01-08] MEDS ORDERED: Dextrose 50% Abboject 50 ML SYRINGE ONE ×2 (01:49→01:50)
[2022-01-08 02:41] LABS: #Lymphocytes 1.2 thou/uL (1.20-3.40); #Monocytes 0.9 thou/uL (0.11-0.59); #Neutrophils 12.4 thou/uL (1.40-6.50); %Basophils 0.2 % (0.0-1.0); %Eosinophils 0.3 % (0.0-10.0); %Lymphocytes 8.2 % (21.0-51.0); %Monocytes 6.2 % (0.0-10.0); %Neutrophils 85.1 % (42.0-75.0); Hemoglobin 15.4 g/dL (12.0-16.0); Mean Corpuscular HGB CONC 31.3 g/dL (32.0-36.0); Mean Corpuscular Volume 92.7 fL (78.0-98.0); Mean Platelet Volume 10.7 fL (7.4-10.4); Platelet Count 166 thou/uL (130-400); RBC Distribution Width 14.7 % (11.5-14.5); White Blood Cell (WBC) Count 14.6 thou/uL (4.8-10.8)
[2022-01-08 02:43] LABS: Bilirubin Negative (Negative); Blood, Urine Negative (Negative); Clarity Clear (Clear); Glucose, Urine (Dipstick) 500 mg/dL (Negative); Ketone, Urine Negative (Negative); Leukocyte Negative Leu/uL (Negative); Nitrite Negative (Negative); Protein, Urine (Dipstick) 70 mg/dL (Neg-Trace); Specific Gravity, Urine 1.011 (1.002-1.036); Urobilinogen Normal mg/dL (Less than 2)
[2022-01-08 03:03] LABS: ALT (SGPT) 17 U/L (8-55); AST (SGOT) 31 U/L (5-34); Albumin 3.8 g/dL (3.4-4.8); Alkaline Phosphatase 101 U/L (40-110); Anion Gap 17 mmol/L (10-20); BUN (Urea Nitrogen) 15 mg/dL (9.8-20.1); Bilirubin, Total 0.7 mg/dL (0.2-1.2); Calc. Creatinine Clearance 0 mL/min (70-130); Calcium 9.9 mg/dL (7.8-10.44); Carbon Dioxide 25 mmol/L (23-31); Chloride 104 mmol/L (98-107); Estimated GFR 90; Globulin 3.9 g/dL (2.4-3.5); Potassium 3.9 mmol/L (3.5-5.1); Protein, Total 7.7 g/dL (5.8-8.1); Sodium 142 mmol/L (136-145)
[2022-01-08 03:12] LABS: Glucose 35 mg/dL (83-110)
[2022-01-08] MEDS ORDERED: Ondansetron PF 4 MG/2 ML Vial ONE (03:42)
== END 2022-01-08 05:25 | disposition home or self-care (01) ==
LOC: ERS 01:26
DX: E16.2 Hypoglycemia, unspecified (principal); I25.10 Atherosclerotic heart disease of native coronary artery without angina pectoris; K21.9 Gastro-esophageal reflux disease without esophagitis; E78.5 Hyperlipidemia, unspecified; E78.00 Pure hypercholesterolemia, unspecified; I48.91 Unspecified atrial fibrillation; Z79.82 Long term (current) use of aspirin; Z79.84 Long term (current) use of oral hypoglycemic drugs; Z79.899 Other long term (current) drug therapy
CPT/HCPCS: 36416; 51701; 71045; 80053; 81003; 81015; 85025; 93005; 96361; 96374; 96375; J2405; J7999

== ENCOUNTER 2023-05-30 10:04 | Inpatient (IN) | payer MEDICARE ==
[2023-05-30 11:09] LABS: #Basophils 0.1 thou/uL (0.0-0.2); #Eosinphils 0.2 thou/uL (0.0-0.7); #Monocytes 1.5 thou/uL (0.11-0.59); #Neutrophils 16.9 thou/uL (1.40-6.50); %Basophils 0.2 % (0.0-1.0); %Eosinophils 1.1 % (0.0-10.0); %Monocytes 7.2 % (0.0-10.0); %Neutrophils 83.9 % (42.0-75.0); Hematocrit 33.8 % (36.0-47.0); Hemoglobin 10.7 g/dL (12.0-16.0); Mean Corpuscular HGB CONC 31.7 g/dL (32.0-36.0); Mean Corpuscular Hemoglobin 28.7 pg (27.0-31.0); Mean Corpuscular Volume 90.6 fl (78.0-98.0); Mean Platelet Volume 12.5 fL (7.4-10.4); Platelet Count 220 10x3/uL (130-400); RBC Distribution Width 15.7 % (11.5-14.5); Red Blood Cell (RBC) Count 3.73 mill/uL (4.20-5.40); White Blood Cell (WBC) Count 20.2 10x3/uL (4.8-10.8)
[2023-05-30] MEDS ORDERED: Iopamidol-370 76% 500 ML MDV (1 ML CHARGE) ONE (11:17)
[2023-05-30 11:23] LABS: INR-International Normal Ratio 1.2; PTT 32.2 sec (22.9-36.1); Prothrombin Time 15.8 sec (12.0-14.7)
[2023-05-30 11:33] LABS: ALT (SGPT) 12 U/L (8-55); AST (SGOT) 14 U/L (5-34); Albumin 3.5 g/dL (3.4-4.8); Alkaline Phosphatase 100 U/L (40-110); Anion Gap 16 mmol/L (10-20); BUN (Urea Nitrogen) 50 mg/dL (9.8-20.1); Bilirubin, Total 0.6 mg/dL (0.2-1.2); Calc. Creatinine Clearance 0 mL/min (70-130); Calcium 8.8 mg/dL (7.8-10.44); Carbon Dioxide 23 mmol/L (23-31); Chloride 104 mmol/L (98-107); Estimated GFR 21; Globulin 3.6 g/dL (2.4-3.5); Glucose 175 mg/dL (83-110); Lipase 36 U/L (8-78); Magnesium 1.4 mg/dL (1.6-2.6); Potassium 4.1 mmol/L (3.5-5.1); Protein, Total 7.1 g/dL (5.8-8.1); Sodium 139 mmol/L (136-145); Troponin I 0.021 ng/mL (< 0.028)
[2023-05-30 11:41] LABS: Bacteria/HPF 1+ HPF (None Seen); Bilirubin Negative (Negative); Blood, Urine Negative (Negative); CAUTI Indications for Culture Alt mental st,lethar; Clarity Turbid (Clear); Glucose, Urine (Dipstick) Normal (Negative); Ketone, Urine Negative (Negative); Leukocyte 75 Leu/uL (Negative); Nitrite Negative (Negative); Protein, Urine (Dipstick) 20 mg/dL (Neg-Trace); RBC/HPF None Seen HPF (0-3); Specific Gravity, Urine 1.017 (1.002-1.036); Squamous Epithelial 0-3 HPF (0-3); Urobilinogen Normal mg/dL (Less than 2); WBC/HPF 0-3 HPF (0-3)
[2023-05-30 11:42] LABS: Urine Culture Reflex No No
[2023-05-30] MEDS ORDERED: Sodium Chloride 0.9% 100 ML ONE (13:32)
[2023-05-30] MEDS ORDERED: Piperacillin/Tazobactam 3.375 GM VIAL ONE (13:32)
[2023-05-30] MEDS ORDERED: Glucagon 1 MG/ML KIT IM PRN (14:01)
[2023-05-30] MEDS ORDERED: Dextrose 5% in Water 1,000 ML IV PRN (14:01)
[2023-05-30] MEDS ORDERED: HumaLOG 300 UNITS/3 ML VIAL SC PRN (14:01)
[2023-05-30] MEDS ORDERED: Dextrose 50% Abboject 50 ML SYRINGE SLOW IVP PRN (14:01)
[2023-05-30] MEDS: Sodium Chloride 0.9% 1,000 ML IV SCH (15:18)
[2023-05-30] MEDS: Heparin 5,000 UNITS/ML VIAL SC SCH ×2 (15:18→20:19)
[2023-05-30 15:56] VITALS: BMI 36.1
[2023-05-30] MEDS: Atorvastatin Calcium 40 MG TAB PO SCH (20:19)
[2023-05-30] MEDS ORDERED: Non-Formulary Item 1 EACH (Metformin Hcl [Metformin Er Gastric] 1,000 MG Tabergr24h) PO SCH (21:00)
[2023-05-31] MEDS: Sodium Chloride 0.9% 1,000 ML IV SCH ×3 (00:46→11:25)
[2023-05-31 05:16] LABS: #Eosinphils 0.4 thou/uL (0.0-0.7); #Monocytes 1.1 thou/uL (0.11-0.59); #Neutrophils 9.7 thou/uL (1.40-6.50); %Basophils 0.2 % (0.0-1.0); %Eosinophils 2.6 % (0.0-10.0); %Lymphocytes 17.8 % (21.0-51.0); %Monocytes 8.1 % (0.0-10.0); %Neutrophils 70.9 % (42.0-75.0); Hematocrit 28.2 % (36.0-47.0); Hemoglobin 8.8 g/dL (12.0-16.0); Mean Corpuscular HGB CONC 31.2 g/dL (32.0-36.0); Mean Corpuscular Hemoglobin 28.3 pg (27.0-31.0); Mean Corpuscular Volume 90.7 fl (78.0-98.0); Mean Platelet Volume 12.1 fL (7.4-10.4); Platelet Count 182 10x3/uL (130-400); RBC Distribution Width 15.9 % (11.5-14.5); Red Blood Cell (RBC) Count 3.11 mill/uL (4.20-5.40); White Blood Cell (WBC) Count 13.7 10x3/uL (4.8-10.8)
[2023-05-31 05:56] LABS: Anion Gap 12 mmol/L (10-20); BUN (Urea Nitrogen) 37 mg/dL (9.8-20.1); Calc. Creatinine Clearance 59 mL/min (70-130); Calcium 8.3 mg/dL (7.8-10.44); Carbon Dioxide 22 mmol/L (23-31); Chloride 113 mmol/L (98-107); Estimated GFR 44; Glucose 137 mg/dL (83-110); Potassium 3.6 mmol/L (3.5-5.1); Sodium 143 mmol/L (136-145)
[2023-05-31] MEDS: Clopidogrel Bisulfate 75 MG TAB PO SCH (09:54)
[2023-05-31] MEDS: Aspirin 81 mg Enteric Coated Tablet PO SCH (09:54)
[2023-05-31] MEDS: Heparin 5,000 UNITS/ML VIAL SC SCH ×3 (09:54→21:20)
[2023-05-31] MEDS ORDERED: Piperacillin/Tazobactam 3.375 GM in Sodium Chloride 0.9% 100 ML IVPB SCH ×2 (10:00→10:30)
[2023-05-31] MEDS: Diclofenac 1% 50 GM TOPICAL GEL TP SCH ×3 (14:26→21:35)
[2023-05-31] MEDS: Piperacillin/Tazobactam 3.375 GM in Sodium Chloride 0.9% 100 ML IVPB SCH ×2 (14:27→22:38)
[2023-05-31] MEDS ORDERED: Gabapentin 300 MG CAP PO SCH (21:00)
[2023-05-31] MEDS: Atorvastatin Calcium 40 MG TAB PO SCH (21:18)
[2023-05-31] MEDS: Gabapentin 300 MG CAP PO SCH (21:19)
[2023-06-01] MEDS: Sodium Chloride 0.9% 1,000 ML IV SCH (01:33)
[2023-06-01 04:29] LABS: #Eosinphils 0.4 thou/uL (0.0-0.7); #Neutrophils 7.1 thou/uL (1.40-6.50); %Basophils 0.3 % (0.0-1.0); %Eosinophils 3.9 % (0.0-10.0); %Lymphocytes 18.3 % (21.0-51.0); %Monocytes 9.2 % (0.0-10.0); Hematocrit 29.4 % (36.0-47.0); Hemoglobin 9.1 g/dL (12.0-16.0); Mean Corpuscular Hemoglobin 27.5 pg (27.0-31.0); Mean Corpuscular Volume 88.8 fl (78.0-98.0); Mean Platelet Volume 12.4 fL (7.4-10.4); Platelet Count 179 10x3/uL (130-400); RBC Distribution Width 16.1 % (11.5-14.5); Red Blood Cell (RBC) Count 3.31 mill/uL (4.20-5.40); White Blood Cell (WBC) Count 10.5 10x3/uL (4.8-10.8)
[2023-06-01 04:53] LABS: Anion Gap 12 mmol/L (10-20); BUN (Urea Nitrogen) 17 mg/dL (9.8-20.1); Calc. Creatinine Clearance 99 mL/min (70-130); Calcium 8.8 mg/dL (7.8-10.44); Carbon Dioxide 21 mmol/L (23-31); Chloride 114 mmol/L (98-107); Estimated GFR 82; Glucose 134 mg/dL (83-110); Potassium 3.9 mmol/L (3.5-5.1); Sodium 143 mmol/L (136-145)
[2023-06-01] MEDS: Piperacillin/Tazobactam 3.375 GM in Sodium Chloride 0.9% 100 ML IVPB SCH ×3 (05:23→21:18)
[2023-06-01] MEDS: Aspirin 81 mg Enteric Coated Tablet PO SCH (07:59)
[2023-06-01] MEDS: Clopidogrel Bisulfate 75 MG TAB PO SCH (07:59)
[2023-06-01] MEDS: Heparin 5,000 UNITS/ML VIAL SC SCH ×3 (07:59→21:19)
[2023-06-01] MEDS: Gabapentin 300 MG CAP PO SCH ×2 (07:59→21:18)
[2023-06-01] MEDS: Diclofenac 1% 50 GM TOPICAL GEL TP SCH ×4 (08:00→21:29)
[2023-06-01] MEDS ORDERED: Torsemide 20 MG TAB PO SCH (13:15)
[2023-06-01] MEDS: Atorvastatin Calcium 40 MG TAB PO SCH (21:18)
[2023-06-02] MEDS ORDERED: Acetaminophen 325 MG TAB PO SCH (01:45)
[2023-06-02 04:03] LABS: Hemoglobin 9.1 g/dL (12.0-16.0)
[2023-06-02] MEDS: Piperacillin/Tazobactam 3.375 GM in Sodium Chloride 0.9% 100 ML IVPB SCH (06:30)
[2023-06-02] MEDS: Clopidogrel Bisulfate 75 MG TAB PO SCH (08:33)
[2023-06-02] MEDS: Gabapentin 300 MG CAP PO SCH (08:33)
[2023-06-02] MEDS: Heparin 5,000 UNITS/ML VIAL SC SCH (08:34)
[2023-06-02] MEDS: Aspirin 81 mg Enteric Coated Tablet PO SCH (08:34)
[2023-06-02] MEDS ORDERED: Spironolactone 25 MG TAB PO SCH (09:00)
[2023-06-02] MEDS ORDERED: Torsemide 20 MG TAB PO SCH (09:00)
[2023-06-02 11:16] VITALS: BP 140/55; TEMP 97.7
[2023-06-02] MEDS: Diclofenac 1% 50 GM TOPICAL GEL TP SCH ×2 (11:16→14:08)
== END 2023-06-02 16:02 | disposition home health service (06) | DRG 872 ==
LOC: ERS 10:04 → ERHOLD 12:53 → IMCU/EMU 15:09
PROVIDERS: ADMIT Internal Medicine; ATTEND Family Medicine
PROC: 0T9B70Z Drainage of Bladder with Drainage Device, Via Natural or Artificial Opening (ICD-10-PCS; principal; 2023-05-30)
PROC: 3E03329 Introduction of Other Anti-infective into Peripheral Vein, Percutaneous Approach (ICD-10-PCS; 2023-05-30)
DX: A41.9 Sepsis, unspecified organism (principal); K57.32 Diverticulitis of large intestine without perforation or abscess without bleeding; N17.9 Acute kidney failure, unspecified; R65.20 Severe sepsis without septic shock; I25.10 Atherosclerotic heart disease of native coronary artery without angina pectoris; E11.22 Type 2 diabetes mellitus with diabetic chronic kidney disease; I12.9 Hypertensive chronic kidney disease with stage 1 through stage 4 chronic kidney disease, or unspecified chronic kidney disease; K21.9 Gastro-esophageal reflux disease without esophagitis; E78.5 Hyperlipidemia, unspecified; E66.9 Obesity, unspecified; E11.65 Type 2 diabetes mellitus with hyperglycemia; M19.90 Unspecified osteoarthritis, unspecified site; N18.30 Chronic kidney disease, stage 3 unspecified; R33.9 Retention of urine, unspecified; I95.9 Hypotension, unspecified; R26.81 Unsteadiness on feet; B95.2 Enterococcus as the cause of diseases classified elsewhere; Z88.5 Allergy status to narcotic agent; Z79.899 Other long term (current) drug therapy; Z79.82 Long term (current) use of aspirin; Z95.1 Presence of aortocoronary bypass graft; Z90.49 Acquired absence of other specified parts of digestive tract; Z90.710 Acquired absence of both cervix and uterus; Z98.890 Other specified postprocedural states; Z98.49 Cataract extraction status, unspecified eye; Z82.49 Family history of ischemic heart disease and other diseases of the circulatory system; Z68.36 Body mass index [BMI] 36.0-36.9, adult
CPT/HCPCS: 36415; 36416; 71045; 74177; 80048; 80053; 81001; 83605; 83690; 83735; 83880; 84443; 84484; 85014; 85018; 85025; 85610; 85730; 87040; 87077; 87086; 87186; 93005; J1644; J2543; J3490; J7050; Q9967

== ENCOUNTER 2024-04-03 05:18 | Inpatient (IN) | payer MEDICARE, OTHER ==
[2024-04-03] MEDS ORDERED: Calcium Carbonate 500 MG ChewTAB PO PRN (07:59)
[2024-04-03] MEDS ORDERED: Acetaminophen 325 MG TAB PO PRN (07:59)
[2024-04-03] MEDS ORDERED: Dextrose 5% in Water 1,000 ML IV PRN (07:59)
[2024-04-03] MEDS ORDERED: Glucagon 1 MG/ML KIT IM PRN (07:59)
[2024-04-03] MEDS ORDERED: Dextrose 50% Abboject 50 ML SYRINGE SLOW IVP PRN (07:59)
[2024-04-03] MEDS ORDERED: Ondansetron PF 4 MG/2 ML Vial IVP PRN (07:59)
[2024-04-03] MEDS: Senokot S 8.6-50 MG TAB PO SCH (08:54)
[2024-04-03] MEDS: Gabapentin 400 MG CAP PO SCH (08:54)
[2024-04-03] MEDS: Enoxaparin 40 MG (0.4 mL) SYRINGE SC SCH (08:54)
[2024-04-03] MEDS: Clopidogrel Bisulfate 75 MG TAB PO SCH (08:55)
[2024-04-03] MEDS: Lidocaine 4% Patch TD SCH (08:55)
[2024-04-03 10:55] VITALS: BMI 37.2
[2024-04-03] MEDS: Furosemide 40 MG (4 mL) VIAL SLOW IVP SCH (14:57)
[2024-04-03] MEDS: Atorvastatin Calcium 40 MG TAB PO SCH (20:06)
[2024-04-03] MEDS: Transdermal Patch Removal TOP SCH (20:06)
[2024-04-04 05:27] LABS: #Basophils 0.05 10x3/uL (0.0-0.2); %Basophils 0.5 % (0.0-1.0); %Lymphocytes 8.2 % (21.0-51.0); %Monocytes 6.3 % (0.0-10.0); %Neutrophils 76.7 % (42.0-75.0); Hematocrit 30.5 % (36.0-47.0); Hemoglobin 9.1 g/dL (12.0-16.0); Mean Corpuscular HGB CONC 29.8 g/dL (32.0-36.0); Mean Corpuscular Hemoglobin 26.5 pg (27.0-31.0); Mean Corpuscular Volume 88.9 fL (78.0-98.0); Platelet Count 235 10x3/uL (130-400); RBC Distribution Width 16.7 % (11.5-14.5); Red Blood Cell (RBC) Count 3.43 mill/uL (4.20-5.40)
[2024-04-04 05:43] LABS: Anion Gap 14 mmol/L (10-20); BUN (Urea Nitrogen) 30 mg/dL (9.8-20.1); Calc. Creatinine Clearance 75 mL/min (70-130); Calcium 9.3 mg/dL (7.8-10.44); Carbon Dioxide 29 mmol/L (23-31); Chloride 103 mmol/L (98-107); Estimated GFR 58; Glucose 175 mg/dL (83-110); Potassium 3.7 mmol/L (3.5-5.1); Sodium 142 mmol/L (136-145)
[2024-04-04 06:05] LABS: Ferritin 984.32 ng/mL (10-291); Thyroid Stimulating Hormone 1.4813 uIU/mL (0.35-4.94)
[2024-04-04] MEDS: Aspirin 81 mg Enteric Coated Tablet PO SCH (09:16)
[2024-04-05 05:38] LABS: #Basophils 0.03 10x3/uL (0.0-0.2); %Basophils 0.4 % (0.0-1.0); %Eosinophils 12.7 % (0.0-10.0); %Monocytes 10.9 % (0.0-10.0); %Neutrophils 63.8 % (42.0-75.0); Hematocrit 29.6 % (36.0-47.0); Hemoglobin 8.8 g/dL (12.0-16.0); Mean Corpuscular HGB CONC 29.7 g/dL (32.0-36.0); Mean Corpuscular Hemoglobin 26.6 pg (27.0-31.0); Mean Corpuscular Volume 89.4 fL (78.0-98.0); Mean Platelet Volume 11.9 fL (7.4-10.4); Platelet Count 205 10x3/uL (130-400); RBC Distribution Width 16.5 % (11.5-14.5); Red Blood Cell (RBC) Count 3.31 mill/uL (4.20-5.40)
[2024-04-05 05:56] LABS: Anion Gap 12 mmol/L (10-20); BUN (Urea Nitrogen) 31 mg/dL (9.8-20.1); Calc. Creatinine Clearance 75 mL/min (70-130); Calcium 8.9 mg/dL (7.8-10.44); Carbon Dioxide 30 mmol/L (23-31); Chloride 102 mmol/L (98-107); Estimated GFR 59; Glucose 116 mg/dL (83-110); Potassium 3.4 mmol/L (3.5-5.1); Sodium 141 mmol/L (136-145)
[2024-04-05] MEDS: Potassium Bicarbonate/Cit Ac 20 MEQ TAB PO SCH (15:33)
[2024-04-05] MEDS: Furosemide 40 MG (4 mL) VIAL SLOW IVP SCH (16:57)
[2024-04-05 20:20] VITALS: BMI 36.1
[2024-04-06] MEDS: Furosemide 40 MG (4 mL) VIAL SLOW IVP SCH (05:35)
[2024-04-06 06:02] LABS: #Basophils 0.03 10x3/uL (0.0-0.2); %Basophils 0.3 % (0.0-1.0); %Lymphocytes 10.5 % (21.0-51.0); %Monocytes 8.1 % (0.0-10.0); %Neutrophils 69.8 % (42.0-75.0); Hematocrit 30.2 % (36.0-47.0); Hemoglobin 8.9 g/dL (12.0-16.0); Mean Corpuscular HGB CONC 29.5 g/dL (32.0-36.0); Mean Corpuscular Hemoglobin 26.1 pg (27.0-31.0); Mean Corpuscular Volume 88.6 fL (78.0-98.0); Mean Platelet Volume 11.5 fL (7.4-10.4); Platelet Count 216 10x3/uL (130-400); RBC Distribution Width 16.7 % (11.5-14.5); Red Blood Cell (RBC) Count 3.41 mill/uL (4.20-5.40)
[2024-04-06 06:17] LABS: Anion Gap 15 mmol/L (10-20); BUN (Urea Nitrogen) 35 mg/dL (9.8-20.1); Calc. Creatinine Clearance 69 mL/min (70-130); Calcium 9.5 mg/dL (7.8-10.44); Carbon Dioxide 29 mmol/L (23-31); Chloride 101 mmol/L (98-107); Estimated GFR 55; Glucose 130 mg/dL (83-110); Potassium 3.3 mmol/L (3.5-5.1); Sodium 142 mmol/L (136-145)
[2024-04-06] MEDS ORDERED: Furosemide 40 MG (4 mL) VIAL SLOW IVP SCH (09:00)
[2024-04-06] MEDS ORDERED: Valsartan 80 MG TAB PO SCH (09:00)
[2024-04-06] MEDS: Spironolactone 25 MG TAB PO SCH ×2 (09:00→15:53)
[2024-04-06] MEDS: Dapagliflozin Propanediol 10 MG TAB PO SCH (09:00)
[2024-04-06] MEDS: Potassium Chloride 20 MEQ TAB PO SCH (09:00)
[2024-04-06] MEDS: Insulin Lispro 100 UNIT/ML 10 ML VIAL SC PRN ×2 (16:36→21:48)
[2024-04-07 06:20] LABS: #Basophils 0.05 10x3/uL (0.0-0.2); %Basophils 0.5 % (0.0-1.0); %Eosinophils 9.5 % (0.0-10.0); %Lymphocytes 6.2 % (21.0-51.0); %Monocytes 8.3 % (0.0-10.0); %Neutrophils 75.1 % (42.0-75.0); Hematocrit 29.4 % (36.0-47.0); Hemoglobin 8.9 g/dL (12.0-16.0); Mean Corpuscular HGB CONC 30.3 g/dL (32.0-36.0); Mean Corpuscular Hemoglobin 26.2 pg (27.0-31.0); Mean Corpuscular Volume 86.5 fL (78.0-98.0); Mean Platelet Volume 11.7 fL (7.4-10.4); Platelet Count 223 10x3/uL (130-400); RBC Distribution Width 16.7 % (11.5-14.5)
[2024-04-07 06:29] LABS: Anion Gap 16 mmol/L (10-20); BUN (Urea Nitrogen) 32 mg/dL (9.8-20.1); Calc. Creatinine Clearance 73 mL/min (70-130); Calcium 9.6 mg/dL (7.8-10.44); Carbon Dioxide 27 mmol/L (23-31); Chloride 101 mmol/L (98-107); Estimated GFR 58; Glucose 150 mg/dL (83-110); Potassium 3.7 mmol/L (3.5-5.1); Sodium 140 mmol/L (136-145)
[2024-04-08 04:04] LABS: #Basophils 0.05 10x3/uL (0.0-0.2); %Basophils 0.6 % (0.0-1.0); %Eosinophils 11.7 % (0.0-10.0); %Lymphocytes 11.7 % (21.0-51.0); %Monocytes 11.6 % (0.0-10.0); Hematocrit 28.7 % (36.0-47.0); Hemoglobin 8.6 g/dL (12.0-16.0); Mean Corpuscular Hemoglobin 26.1 pg (27.0-31.0); Mean Corpuscular Volume 87.2 fL (78.0-98.0); Mean Platelet Volume 11.3 fL (7.4-10.4); Platelet Count 200 10x3/uL (130-400); RBC Distribution Width 16.6 % (11.5-14.5); Red Blood Cell (RBC) Count 3.29 mill/uL (4.20-5.40)
[2024-04-08 04:18] LABS: Anion Gap 13 mmol/L (10-20); BUN (Urea Nitrogen) 32 mg/dL (9.8-20.1); Calc. Creatinine Clearance 72 mL/min (70-130); Calcium 9.2 mg/dL (7.8-10.44); Carbon Dioxide 29 mmol/L (23-31); Chloride 101 mmol/L (98-107); Estimated GFR 57; Glucose 143 mg/dL (83-110); Potassium 3.8 mmol/L (3.5-5.1); Sodium 139 mmol/L (136-145)
[2024-04-09 04:39] LABS: #Basophils 0.05 10x3/uL (0.0-0.2); %Basophils 0.5 % (0.0-1.0); %Eosinophils 10.1 % (0.0-10.0); %Lymphocytes 12.1 % (21.0-51.0); %Monocytes 10.3 % (0.0-10.0); %Neutrophils 66.7 % (42.0-75.0); Hematocrit 30.1 % (36.0-47.0); Hemoglobin 8.9 g/dL (12.0-16.0); Mean Corpuscular HGB CONC 29.6 g/dL (32.0-36.0); Mean Corpuscular Hemoglobin 25.9 pg (27.0-31.0); Mean Corpuscular Volume 87.8 fL (78.0-98.0); Mean Platelet Volume 11.6 fL (7.4-10.4); Platelet Count 217 10x3/uL (130-400); RBC Distribution Width 16.8 % (11.5-14.5); Red Blood Cell (RBC) Count 3.43 mill/uL (4.20-5.40)
[2024-04-09 05:00] LABS: Anion Gap 14 mmol/L (10-20); BUN (Urea Nitrogen) 32 mg/dL (9.8-20.1); Calc. Creatinine Clearance 71 mL/min (70-130); Calcium 9.2 mg/dL (7.8-10.44); Carbon Dioxide 28 mmol/L (23-31); Chloride 100 mmol/L (98-107); Estimated GFR 57; Glucose 157 mg/dL (83-110); Magnesium 2.3 mg/dL (1.6-2.6); Potassium 3.5 mmol/L (3.5-5.1); Sodium 138 mmol/L (136-145)
[2024-04-09] MEDS: Furosemide 40 MG TAB PO SCH (09:55)
[2024-04-09] MEDS: Guaifenesin DM 100-10/5 ML UDCUP PO PRN (12:18)
[2024-04-09 16:28] VITALS: BP 126/62; TEMP 98.2
== END 2024-04-09 16:18 | disposition home or self-care (01) | DRG 291 ==
LOC: 2NO 06:47 → OBSVTOIN 07:59
PROVIDERS: ADMIT Student in an Organized Health Care Education/Training Program; ATTEND Internal Medicine
DX: I13.0 Hypertensive heart and chronic kidney disease with heart failure and stage 1 through stage 4 chronic kidney disease, or unspecified chronic kidney disease (principal); I50.43 Acute on chronic combined systolic (congestive) and diastolic (congestive) heart failure; I25.10 Atherosclerotic heart disease of native coronary artery without angina pectoris; E11.22 Type 2 diabetes mellitus with diabetic chronic kidney disease; K21.9 Gastro-esophageal reflux disease without esophagitis; E66.01 Morbid (severe) obesity due to excess calories; M54.50 Low back pain, unspecified; I44.1 Atrioventricular block, second degree; I42.9 Cardiomyopathy, unspecified; N18.30 Chronic kidney disease, stage 3 unspecified; D63.1 Anemia in chronic kidney disease; S81.802A Unspecified open wound, left lower leg, initial encounter; S81.801A Unspecified open wound, right lower leg, initial encounter; Z95.1 Presence of aortocoronary bypass graft; Z95.0 Presence of cardiac pacemaker; Z90.49 Acquired absence of other specified parts of digestive tract; Z90.710 Acquired absence of both cervix and uterus; Z98.49 Cataract extraction status, unspecified eye; Z68.35 Body mass index [BMI] 35.0-35.9, adult
CPT/HCPCS: 36415; 36416; 72128; 72131; 80048; 82728; 83735; 84443; 85025; 93306; 97139; J1650; J1815; J1940

== ENCOUNTER 2024-08-13 12:29 | Emergency (ER) | payer OTHER ==
[2024-08-13 14:05] LABS: #Basophils 0.04 10x3/uL (0.0-0.2); %Basophils 0.4 % (0.0-1.0); %Eosinophils 3.8 % (0.0-10.0); %Lymphocytes 11.9 % (21.0-51.0); %Monocytes 8.9 % (0.0-10.0); %Neutrophils 74.5 % (42.0-75.0); Hematocrit 33.2 % (36.0-47.0); Hemoglobin 10.3 g/dL (12.0-16.0); Mean Corpuscular Hemoglobin 25.6 pg (27.0-31.0); Mean Corpuscular Volume 82.4 fL (78.0-98.0); Mean Platelet Volume 11.1 fL (7.4-10.4); Platelet Count 224 10x3/uL (130-400); RBC Distribution Width 18.9 % (11.5-14.5); Red Blood Cell (RBC) Count 4.03 mill/uL (4.20-5.40)
[2024-08-13 14:16] LABS: CRP,High Sensitivity (Inhouse) 8.99 mg/dL (< or = 0.5)
[2024-08-13 14:17] LABS: ALT (SGPT) Less than 7 U/L (Less than 34); AST (SGOT) 21 U/L (11-34); Albumin 3.5 g/dL (3.1-4.5); Alkaline Phosphatase 129 U/L (40-110); Anion Gap 17 mmol/L (10-20); BUN (Urea Nitrogen) 34 mg/dL (9.8-20.1); Bilirubin, Total 1.1 mg/dL (0.3-1.2); Calc. Creatinine Clearance 0 mL/min (70-130); Calcium 9.7 mg/dL (7.8-10.44); Carbon Dioxide 23 mmol/L (23-31); Chloride 105 mmol/L (98-107); Estimated GFR 56; Globulin 4.5 g/dL (2.4-3.5); Glucose 146 mg/dL (83-110); Potassium 3.6 mmol/L (3.5-5.1); Sodium 141 mmol/L (136-145)
[2024-08-13 14:19] LABS: INR-International Normal Ratio 1.3; Prothrombin Time 15.9 sec (12.0-14.7)
[2024-08-13 14:20] LABS: PTT 38.2 sec (22.9-36.1)
[2024-08-13 14:21] LABS: D-Dimer Test 1.07 mcg/mL (0.27-0.43)
[2024-08-13 14:36] LABS: Bacteria/HPF None Seen HPF (None Seen); Bilirubin Negative (Negative); CAUTI Indications for Culture Alt mental st,lethar; Glucose, Urine (Dipstick) Normal (Negative); Ketone, Urine Negative (Negative); Leukocyte Negative Leu/uL (Negative); Nitrite Negative (Negative); Protein, Urine (Dipstick) 10 mg/dL (Neg-Trace); RBC/HPF 0-3 HPF (0-3); Squamous Epithelial 0-3 HPF (0-3); Urobilinogen Normal mg/dL (Less than 2); WBC/HPF 0-3 HPF (0-3)
[2024-08-13 14:38] LABS: Clarity Hazy (Clear)
[2024-08-13 14:40] LABS: Blood, Urine Trace (Negative)
[2024-08-13 14:41] LABS: Urine Culture Reflex No No
[2024-08-13] MEDS ORDERED: Cephalexin 250 MG CAP ONE (15:02)
== END 2024-08-13 18:46 | disposition home or self-care (01) ==
LOC: ERS 12:29
DX: L03.116 Cellulitis of left lower limb (principal); L03.115 Cellulitis of right lower limb; I87.8 Other specified disorders of veins; K21.9 Gastro-esophageal reflux disease without esophagitis; I10 Essential (primary) hypertension; I48.91 Unspecified atrial fibrillation; E11.9 Type 2 diabetes mellitus without complications; I47.10 Supraventricular tachycardia, unspecified; I25.10 Atherosclerotic heart disease of native coronary artery without angina pectoris; E78.00 Pure hypercholesterolemia, unspecified; Z79.84 Long term (current) use of oral hypoglycemic drugs; Z79.899 Other long term (current) drug therapy
CPT/HCPCS: 51701; 70450; 80053; 81001; 82140; 83605; 84443; 85025; 85379; 85610; 85730; 86141; 87040; 93005; 93970; 94760